=== PATIENT | female | born 1935 | race Caucasian/White ===

== ENCOUNTER → 2016-05-20 | Outpatient (CLI) | payer MEDICARE, BC ==
[2016-05-20 13:25] LABS: Basophils # (A) 0.1 k/uL (0-0.2); Basophils % (A) 1 %; CH 30.3; CHCM 33.3; Eosinophils # (A) 0.2 k/uL (0-0.7); Eosinophils % (A) 2 %; HCT 37.8 % (34.0-46.0); HDW 2.42; HGB 12.2 gm/dL (11.4-16.0); Luc # (Auto) 0.25; Luc % (Auto) 3; Lymphocytes # (A) 2.4 k/uL (1.0-4.8); Lymphocytes % (A) 31 %; MCH 29.4 pg (25.0-35.0); MCHC 32.2 g/dL (31.0-37.0); MCV 91.4 fL (80.0-100.0); Mean Platelet Volume 6.6; Monocytes # (A) 0.5 k/uL (0-1.0); Monocytes % (A) 6 %; Neutrophils # (A) 4.5 k/uL (1.3-7.7); Neutrophils % (A) 58 %; RBC 4.13 m/uL (3.80-5.40); RDW 13.5 % (11.5-15.5); WBC 7.9 k/uL (3.8-10.6)
[2016-05-20 13:28] LABS: Appearance,Urine Clear (Clear); Bilirubin,Urine Negative (Negative); Glucose,Urine (UA) Negative (Negative); Ketones,Urine Negative (Negative); Leukocyte Esterase,Urine Negative (Negative); Nitrite,Urine Negative (Negative); Protein,Urine Negative (Negative); UA Billing (MACRO vs. MICRO) CHEM; Urobilinogen,Urine <2.0 mg/dL (<2.0)
[2016-05-20 13:31] LABS: Partial Thromboplastin Time 23.4 sec (22.0-30.0); Prothrombin Time 10.3 sec (9.0-12.0)
[2016-05-20 13:33] LABS: ALT 40 U/L (9-52); AST 24 U/L (14-36); Alkaline Phosphatase 76 U/L (38-126); Anion Gap 13 mmol/L; Blood Urea Nitrogen 21 mg/dL (7-17); Carbon Dioxide 23 mmol/L (22-30); Chloride 96 mmol/L (98-107); Glucose 81 mg/dL (74-99); Non-African American GFR(MDRD) 53 (>60 ml/min/1.73 sqM); Sodium 132 mmol/L (137-145); Total Bilirubin 0.7 mg/dL (0.2-1.3); Total Protein 7.7 g/dL (6.3-8.2)
== END | disposition home or self-care (01) ==
LOC: LABPAT 12:45
PROVIDERS: ATTEND Orthopaedic Surgery Sports Medicine
DX: Z01.812 Encounter for preprocedural laboratory examination (principal)
CPT/HCPCS: 80053; 81003; 85025; 85610; 85730; 87070

== ENCOUNTER 2016-05-23 11:52 | Inpatient (IN) | payer MEDICARE, BC ==
[2016-05-21 09:21] VITALS: BMI 31.3
[~2016-05-23 11:52] MED LIST: ACETAMINOPHEN TAB 500 MG TAB PO ONE; DEXAMETHASONE SOD PHOSPHATE 10 MG/ML 1 ML VIAL IV ONE; LIDOCAINE 1% 20 ML VIAL (10MG/ML) FOR IV START INTRADERMA PRN; MELOXICAM 7.5 MG TAB PO ONE; MIDAZOLAM 2 MG/2 ML VIAL IV PRN; ONDANSETRON 4 MG/2 ML VIAL IVP ONE; SCOPOLAMINE 1.5MG/72HR PATCH TRANSDERM ONE; TRANEXAMIC ACID 1,000 MG in SODIUM CHLORIDE 0.9% 100 ML IVPB ONE; ceFAZolin 2 GM in SODIUM CHLORIDE 0.9% 100 ML IVPB ONE
[2016-05-23 13:07] LABS: Glucose,Whole Blood 119 mg/dL (75-99)
[2016-05-23] MEDS: LACTATED RINGERS 1,000 ML IV SCH ×2 (13:11→17:06)
[2016-05-23] MEDS ORDERED: ROCURONIUM BROMIDE 10 MG/ML 10 ML VIAL IV ONE (13:30)
[2016-05-23] MEDS ORDERED: ePHEDrine 50 MG/ML 1 ML AMP ONE (13:30)
[2016-05-23] MEDS ORDERED: NEOSTIGMINE 1 MG/ML 10 ML VIAL ONE (13:30)
[2016-05-23] MEDS ORDERED: HYDROmorphone (PF) 1 MG/ML ONE (13:30)
[2016-05-23] MEDS ORDERED: SUCCINYLCHOLINE CHLORIDE 100 MG/5 ML SYR IV ONE (13:30)
[2016-05-23] MEDS ORDERED: MIDAZOLAM 2 MG/2 ML VIAL ONE (13:30)
[2016-05-23] MEDS ORDERED: TRANEXAMIC ACID 1,000 MG/10 ML VIAL ONE (13:30)
[2016-05-23] MEDS ORDERED: SODIUM CHLORIDE 0.9% 100 ML BAG ONE (13:30)
[2016-05-23] MEDS ORDERED: fentaNYL (PF) 50 MCG/ML 2 ML AMP ONE (13:30)
[2016-05-23] MEDS ORDERED: hydrALAZINE HCL 20 MG/ML 1 ML VIAL ONE (13:30)
[2016-05-23] MEDS ORDERED: GLYCOPYRROLATE 0.2 MG/ML 2 ML VIAL ONE (13:30)
[2016-05-23] MEDS ORDERED: PROPOFOL 10 MG/ML 20 ML VIAL IV ONE (13:30)
[2016-05-23] MEDS ORDERED: ceFAZolin 3,000 MG in SODIUM CHLORIDE 0.9% IRRIGATIO 3,000 ML IRRIGATION ONE (14:00)
[2016-05-23] MEDS ORDERED: hydrOXYzine PAMOATE 25 MG CAP PO PRN (15:26)
[2016-05-23] MEDS ORDERED: ACETAMINOPHEN TAB 325 MG TAB PO PRN (15:26)
[2016-05-23] MEDS ORDERED: NALOXONE 0.4 MG/ML 1 ML VIAL IV PRN (15:26)
[2016-05-23] MEDS ORDERED: NA PHOS,M-B/NA PHOS,DI-BA 133 ML ENEMA RECTAL PRN (15:26)
[2016-05-23] MEDS ORDERED: TEMAZEPAM 15 MG CAP PO PRN (15:26)
[2016-05-23] MEDS ORDERED: BISACODYL 10 MG SUPP RECTAL PRN (15:26)
[2016-05-23] MEDS ORDERED: DIAZEPAM 5 MG TAB PO PRN (15:26)
[2016-05-23] MEDS ORDERED: MAGNESIUM HYDROXIDE 2,400 MG/10 ML CUP PO PRN (15:26)
[2016-05-23] MEDS ORDERED: HYDROmorphone 1 MG/ML 1 ML SYRINGE IVP PRN ×3 (15:26)
[2016-05-23] MEDS: HYDROmorphone 1 MG/ML 1 ML SYRINGE IVP PRN ×2 (15:45→16:14)
--- NOTE | 2016-05-23 16:06 | XR ---
Limited right knee HISTORY: Status post right knee arthroplasty. 2 views of the right knee No comparisons Patient is status post right knee arthroplasty. There is anatomic alignment. Lucency in the soft tiss ues compatible with postop state. There are vascular arterial calcifications. IMPRESSION: Orthopedic follow-up
[2016-05-23] MEDS: ONDANSETRON 4 MG/2 ML VIAL IVP PRN (17:48)
[2016-05-23] MEDS ORDERED: WARFARIN 2.5 MG TAB PO ONE (18:00)
[2016-05-23 19:56] LABS: Glucose,Whole Blood 154 mg/dL (75-99)
[2016-05-23] MEDS: HYDROcodone/APAP 7.5-325MG 1 EACH TAB PO PRN (20:15)
[2016-05-23] MEDS: SENNOSIDES-DOCUSATE SODIUM 1 EACH TAB PO SCH (20:16)
[2016-05-23] MEDS: CALCIUM CARB-VIT D 500MG-200UN 1 EACH TAB PO SCH (20:16)
[2016-05-23] MEDS: INSULIN LISPRO (humaLOG) 300 UNIT/3 ML VIAL SQ SCH (20:16)
--- NOTE | 2016-05-23 21:22 | PN ---
DATE OF SERVICE: 05/23/2016 Glory is status post right total knee arthroplasty done earlier today. She is back up on the floor. She is resting comfortably. Her pain is controlled. She has no complaints. EXAM: She is afebrile. Vital signs are stable. Dressings dry. She has intact flexion-extension, inversion and eversion of the ankle. She has intact flexion-extension of all of her toes. She has brisk capillary refill and 2+ posterior tibial pulse. Sensation is also intact to the lateral, medial, plantar and first dorsal web space. IMPRESSION: Status post right total knee arthroplasty. RECOMMENDATIONS: Glory is doing very well early in the postoperative period. She will continue on usual postoperative regimen. She will start with physical therapy tomorrow. She will continue with postoperative IV antibiotics as well as DVT prophylaxis. All of her questions were answered to her satisfaction.
--- NOTE | 2016-05-23 22:35 | OP ---
DATE OF SERVICE: 05/23/2016. SURGEON: MARY VALERO MD IT [employer] DEVELOPMENT CONSULTANT: SILVIA YOUNG. PREOPERATIVE DIAGNOSIS: Right knee osteoarthrosis. POSTOPERATIVE DIAGNOSIS: Right knee osteoarthrosis. OPERATION: Right total knee arthroplasty. ANESTHESIA: General endotracheal. ESTIMATED BLOOD LOSS: 150 mL TOURNIQUET TIME: 47 minutes at 250 mmHg. SPECIMENS REMOVED: COMPLICATIONS: None apparent. DRAINS: None. DISPOSITION: Postanesthesia care unit. OPERATIVE FINDINGS: INDICATIONS: Mrs. Bermudez is an 81-year-old female with long-standing history of right knee pain. History and physical examination are consistent with advanced right knee osteoarthrosis. She has been through significant nonoperative management up to this point. Further treatment options were discussed and she and I decided to go forward with right total knee arthroplasty. The risks and benefits of the procedure were discussed with her in detail. These risks include, but are not limited to risk of infection, nerve damage, bleeding, pain, and a risk of deep vein thrombosis, which could lead to fatal pulmonary embolism. There is also a risk of loosening of the implant, which could require revision operation. The patient understands these risks. All of her questions were answered to her satisfaction. Appropriate informed consent was obtained. DESCRIPTION OF THE PROCEDURE: Patient was identified in the preoperative holding area. Surgical site was marked by both the patient and myself. She was given 2 grams of Ancef IV for prophylactic purposes. She was then transferred to the operative suite. She was placed supine on the operating room table. A general anesthetic was administered and dosed per the anesthesia department without apparent complication. Examination under anesthesia was then performed. The patient had full extension. She had 100 degrees of flexion, and the medial collateral ligament, lateral collateral ligament and posterior cruciate ligaments were stable. Tourniquet was placed high on the right upper thigh, well-padded in preparation for surgery. The patient's right lower extremity was then prepped and draped usual sterile fashion. Standard surgical pause was then undertaken to ensure that were operating on the correct site and that appropriate preoperative antibiotics had been given. All staff in the room were in agreement and we proceeded. The outlines of the patella were then marked with a surgical pen. A planned 12 cm vertical incision centered over the patella was marked with a surgical pen. The leg was then exsanguinated with an Esmarch dressing. The knee was then flexed and tourniquet was inflated to 250 mmHg. The total tourniquet time for the procedure was 47 minutes. Incision was then made with a 10 blade scalpel. Dissection was carried down sharply to the overlying fascia. Great care was taken to minimize skin flaps. The knee was then exposed using a standard medial parapatellar approach. A small cuff of quadriceps tendon was left for suturing. She was in mild valgus. Very minimal and only very minimal medial release was made. This was made just to accept the retractors. The medial meniscus was then excised and the lateral meniscus was also released anteriorly. The leg was then externally rotated. The patella was then everted and the knee was flexed. Retractors were then placed to protect the collateral ligaments. I then proceeded to remove the infrapatellar fat pad. This was excised sharply tangentially with the fibers of the patellar tendon. I then proceeded to remove the peripheral osteophytes. This was done with rongeur. I then proceeded with the distal femoral resection. She did have near full extension. A planned 9 mm resection was done. The femoral canal was then entered in the midline of the femur approximately 10 mm anterior to the origin of the posterior cruciate ligament. The chelsea was then advanced down the center of the femur and the chelsea placed intramedullary. Based on preoperative radiographs, the angle between the anatomic and mechanical axis of the femur was approximately 4 to 5 degrees the valgus angle of distal femoral cutting guide was then set at 4 degrees for the right knee. The distal femoral cutting guide was then advanced over the intramedullary chelsea. This was seated firmly against the femur. I then, as mentioned, planned to take 9 mm off the distal femur. The cutting block was then secured onto the femur with pins. Jig was then removed and the distal femoral cut was made through the slot of the block. The pins were then removed and the distal femoral cutting block was removed. The accuracy of the distal femoral cuts was checked with 2 flat bars. I then proceeded with femoral sizing. The posterior referencing sizing guide was held firmly against the resected distal surface of the femur. Posterior condyles were resting on the posterior plane of the guide. The sizing stylus was then placed onto the anterior femur. The size was measured size 6. I then assessed for femoral rotation. Plan was for 3 degrees of external rotation. 3 degrees of external rotation was placed onto the jig. These holes were then marked. I then confirmed the rotation by 3 separate methods. This was done using epicondylar axis as well as Whitesides line and posterior referencing. It was deemed that the external rotation was proper. I then went forward with placing the femoral cutting block. This was placed over the previously placed pinholes. Edy wing was then placed onto the anterior slots to ensure that we would not notch the anterior femur with the anterior femoral cut. I then proceeded with the anterior femoral cut. This was flush with the anterior cortex of the femur. Posterior cuts were then made followed by the anterior chamfer cut and then the posterior chamfer cut. The cutting block was then removed. Throughout the resection, the collateral ligaments were protected with retractors. I then placed a trial 6 femur. It fit very nice medial to lateral and fit flush with the distal end of the femur. The drill holes were then made. I then proceeded with the tibial cutter. Planned for cruciate-retaining knee. The guide was placed and set for varus valgus and for slope. Height was set for approximately 2 mm resection from the medial tibial plateau, which was the lower side. I was happy to the alignment and the amount of resection. The cutting block was then pinned to the proximal tibia. The alignment chelsea was removed and the proximal tibia was resected with the reciprocating saw. Again this was done with retractors, protecting the collateral ligaments as well as posterior cruciate ligament. I then proceeded to evaluate the flexion and extension gaps. A 10 mm block was then placed. The flexion and extension gaps were equal. I then proceeded with resection of the posterior osteophytes. She had very minimal posterior osteophytes. This was done using curved osteotome. This resected the posterior osteophytes and posterior capsule stripping was also done off the posterior aspect of the femur at this time. The osteophytes were removed. I then proceeded with resection of the patella. The thickness of the patella was measured using the caliper. Thickness was 22 mm, the thickness of the anticipated patellar dome was taken into account. Resection was then performed and confirmed to be equal in 4 quadrants using the caliper. Approximately 14 mm of bone remained after the resection. A 29 x 8 mm standard patellar trial was then placed. The holes were then drilled and trial was then placed. I then proceeded with sizing the tibial plate. A size C tibial plate fit very nicely. I then placed a trial femur, the tibial tray and the patellar button. A 10 mm trial tibial insert was also placed. The components fit very nicely. She had full extension and flexion. Extension and flexion gaps were equal and stable to both varus and valgus stress. The patella tracked appropriately. The tibial tray rotation was marked with a Bovie. This was externally rotated properly. I then proceeded with tibial preparation. I first drilled femoral holes and removed femoral component. The tibial tray was then set for proper external rotation as well as mediolateral placement onto the tibia. It was then pinned into place. I then proceeded with punching the keel. I then decided to proceed cementing of all of our components. The knee was thoroughly irrigated with sterile saline solution via pulse lavage. The lateral geniculate artery was identified and cauterized. All blood was removed from the bone of the tibia, femur and patella with pulse lavage. I then proceed with cementing. 2 packs of antibiotic bone cement were prepared on the back table by the computer technician. I then proceeded with cementing of the tibia first. The cement was impacted in the keel as well as deeply seated into the bone. A second coat of cement was then placed. The tibia was then impacted into place. Excess cement was removed with Wynne's and jokers. I then proceeded with cementing the femoral component. The femoral component was also cemented using standard technique. Excess cement was removed. A 10 mm trial insert was then placed into the knee. It was brought into full extension with a constant axial load placed until the cement had hardened. The patellar component was then re- cemented. This was held firmly with a compressive device until the cement had dried. When the cement had dried, the knee was taken out of extension. All excess cement was removed from around the prosthesis. I then trialed the knee with a 10 mm insert. Flexion-extension gaps were appropriate. The knee was stable. It came into full extension. I decided to go forward with a 10 mm cross-linked cruciate-retaining tibial insert. Polyethylene was then placed onto the tibial tray and locked. The knee was reduced. The knee was again further irrigated with sterile saline solution with antibiotic added. The tourniquet was then deflated. Total tourniquet time for the procedure was 47 minutes at 250 mmHg. Final components were Jesus Alberto persona size 6 cruciate-retaining femoral component, a size C tibial tray and a 10 mm medial congruent cruciate retaining polyethylene insert and a 29 x 8 mm patella. I then proceeded with closure. Again, the knee was thoroughly irrigated. The quadriceps tendon and the medial retinaculum were reapproximated with #2 Ethibond suture. The extensor mechanism was then closed with running #2 Quill suture. Subcutaneous tissues were then closed with 2-0 Vicryl interrupted suture. Skin was closed with a running 3-0 Quill suture. Dermabond was applied to the incision. Sterile compressive dressings were then applied. All sponge and needle counts were deemed correct prior to closure. The patient tolerated the procedure without apparent complication. She was transferred to recovery room in stable condition.
[2016-05-23] MEDS: ceFAZolin 2 GM in SODIUM CHLORIDE 0.9% 100 ML IVPB SCH (23:35)
[2016-05-24] MEDS: LACTATED RINGERS 1,000 ML IV SCH ×3 (02:22→13:08)
[2016-05-24] MEDS: HYDROcodone/APAP 7.5-325MG 1 EACH TAB PO PRN ×3 (04:13→19:09)
[2016-05-24 07:22] LABS: Glucose,Whole Blood 120 mg/dL (75-99)
[2016-05-24] MEDS: INSULIN LISPRO (humaLOG) 300 UNIT/3 ML VIAL SQ SCH ×4 (07:35→20:10)
[2016-05-24] MEDS: METOPROLOL TARTRATE 25 MG TAB PO SCH ×2 (07:36→20:45)
[2016-05-24] MEDS: CHLORTHALIDONE 25 MG TAB PO SCH (07:37)
[2016-05-24] MEDS: MAGNESIUM OXIDE 400 MG TAB PO SCH (07:37)
[2016-05-24] MEDS: LOSARTAN 50 MG TAB PO SCH (07:37)
[2016-05-24] MEDS: CLOPIDOGREL 75 MG TAB PO SCH (07:37)
[2016-05-24] MEDS: amLODIPine 5 MG TAB PO SCH (07:38)
[2016-05-24] MEDS: LEVOTHYROXINE 88 MCG TAB PO SCH (07:38)
[2016-05-24] MEDS: PANTOPRAZOLE 40 MG TABLET PO SCH (07:38)
[2016-05-24] MEDS: ceFAZolin 2 GM in SODIUM CHLORIDE 0.9% 100 ML IVPB SCH (07:39)
[2016-05-24 08:10] LABS: Basophils % (A) 0 %; CH 30.5; CHCM 34.1; Eosinophils # (A) 0.1 k/uL (0-0.7); Eosinophils % (A) 0 %; HCT 33.2 % (34.0-46.0); HDW 2.58; HGB 11.1 gm/dL (11.4-16.0); Luc # (Auto) 0.16; Luc % (Auto) 1; Lymphocytes # (A) 1.8 k/uL (1.0-4.8); Lymphocytes % (A) 10 %; MCHC 33.4 g/dL (31.0-37.0); MCV 89.9 fL (80.0-100.0); Mean Platelet Volume 7.4; Monocytes # (A) 0.9 k/uL (0-1.0); Monocytes % (A) 5 %; Neutrophils # (A) 15.3 k/uL (1.3-7.7); Neutrophils % (A) 84 %; RBC 3.69 m/uL (3.80-5.40); RDW 13.3 % (11.5-15.5); WBC 18.3 k/uL (3.8-10.6); WBC (Perox) 17.88
[2016-05-24] MEDS: ONDANSETRON 4 MG/2 ML VIAL IVP PRN (09:07)
[2016-05-24 11:35] LABS: Glucose,Whole Blood 169 mg/dL (75-99)
[2016-05-24] MEDS: MULTIVITAMINS, THERA 1 EACH TAB PO SCH (13:10)
[2016-05-24 14:15] LABS: Hemoglobin A1C 7.7 % (4.2-6.1)
[2016-05-24 17:02] LABS: Glucose,Whole Blood 123 mg/dL (75-99)
--- NOTE | 2016-05-24 17:18 | CONS ---
DATE OF CONSULTATION: REASON FOR CONSULTATION: Recommendations regarding antihypertensive medications and asthma medications. Patient is a very pleasant 81-year-old female who underwent right knee arthroplasty. Patient is clinically doing well. Patient does have leukocytosis without any signs or symptoms of infection. Patient is on Coumadin for DVT prophylaxis. INR is 2. Patient denied any fever or chills. Patient denied any nausea, vomiting. Patient denied any cough, runny nose. Patient denied any dysuria. Patient does have leukocytosis at 18,300; it appears to be reactive leukocytosis. Her hemoglobin A1c is 7.7. Patient did not pass gas yet, did not move her bowel yet. Patient is on multiple other narcotic medications for pain. I discontinued diazepam. I discontinued hydromorphone. Anticholinergic medications were discontinued as well. Patient is complaining of pain in the right knee area which appears to have been controlled with Marina and meloxicam. Patient was also on GI prophylaxis at this point of time. REVIEW OF SYSTEMS: CONSTITUTIONAL: No fever, no malaise, no fatigue. HEENT: No recent visual problems or hearing problems. Denied any sore throat. CARDIOVASCULAR: No chest pain, orthopnea, PND, no palpitations, no syncope. PULMONARY: No shortness of breath, no cough, no hemoptysis. GASTROINTESTINAL: No diarrhea, no nausea, no vomiting, no abdominal pain. Normoactive bowel sounds. NEUROLOGICAL: No headaches, no weakness, no numbness. HEMATOLOGICAL: Denies any bleeding or petechiae. GENITOURINARY: Denies any burning micturition, frequency, or urgency. MUSCULOSKELETAL/RHEUMATOLOGICAL: Pain in the right knee, as mentioned above, post surgery. ENDOCRINE: Denies any polyuria or polydipsia. The rest of the 14 point review of systems is negative. Home medications include: 1. Levothyroxine. 2. Chlorthalidone. 3. Atorvastatin. 4. Omeprazole. 5. Metoprolol. 6. Losartan. 7. Amlodipine. 8. Nitroglycerin. 9. Multivitamin. 10. Lantus 17 units subcutaneous daily. 11. Plavix. 12. Cholecalciferol. 13. Aspirin. 14. Calcium carbonate. Past medical history is significant for: 1. Asthma. 2. Coronary artery disease. 3. Diabetes mellitus, type 2. 4. Gastroesophageal reflux disease. 5. Hyperlipidemia. 6. Hypertension. 7. Myocardial infarction. 8. Hypothyroidism. 9. Varicose veins in the past. 10. Patient had a cardiac catheterization with stent placement in the past. 11. Hysterectomy. 12. Pacemaker placement. 13. Back surgery. 14. Appendectomy. 15. Anxiety and depression. Past family history is significant for lung cancer. PHYSICAL EXAMINATION: VITAL SIGNS: Temperature 97.0, pulse 52, respiratory rate 16, blood pressure 170/115. Saturating at 97% on room air. GENERAL: The patient is alert and oriented x3, not in any acute distress. Well developed, well nourished. HEENT: Pupils are round and equally reacting to light. EOMI. No scleral icterus. No conjunctival pallor. Normocephalic, atraumatic. No pharyngeal erythema. No thyromegaly. CARDIOVASCULAR: S1 and S2 present. No murmurs, rubs, or gallops. PULMONARY: Chest is clear to auscultation, no wheezing or crackles. ABDOMEN: Soft, nontender, nondistended, normoactive bowel sounds. No palpable organomegaly. MUSCULOSKELETAL: Deferred to Orthopedic Surgery. EXTREMITIES: No cyanosis, clubbing, or pedal edema. NEUROLOGICAL: Gross neurological examination did not reveal any focal deficits. SKIN: No rashes. LABORATORY DATA: Leukocytosis, as mentioned above. ASSESSMENT AND PLAN: 1. Leukocytosis without any signs or symptoms of infection, which appears to be reactive. No further intervention is recommended at this point of time. 2. Asthma, not in acute exacerbation. 3. Coronary artery disease. 4. Hypertension. Recommend to continue her home medications, including metoprolol. 5. Patient is mildly bradycardic, but patient has a pacemaker in place. 6. Hyperlipidemia. 7. Hypothyroidism. For above-mentioned chronic medical problems, patient can be continued on her home medications. Continue to measure blood sugars t.i.d. and before meals. Will continue to follow the patient. Recommend avoiding benzodiazepines, opiates, barbiturates and anticholinergic medications. Thank you for letting me participate in this patient's care. Patient's primary care physician is Dr. Ben Tapia.
--- NOTE | 2016-05-24 17:44 | P.PN ---
Subjective Principal diagnosis: OA right knee Patient seen at bedside today. She is post op day #1 from right total knee arthroplasty per Dr. St. She has no new complaints. She has post op pain as expected at the surgical site. She denies numbness, tingling or calf pain. ROS is negative for fever, chills, chest pain, SOB or other. Objective - Vital Signs Vital signs: Vital Signs Temp 97.3 F L 05/24/16 15:34 Pulse 59 L 05/24/16 15:34 Resp 16 05/24/16 15:34 BP 149/67 05/24/16 15:34 Pulse Ox 96 05/24/16 15:34 Intake & Output 05/23/16 05/24/16 05/24/16 18:59 06:59 18:59 Intake Total 851 1390 1000 Output Total 350 700 450 Balance 501 690 550 Weight 70.307 kg Intake: IV 851 800 200 Lactated Ringers 1,000 ml 800 200 @ 100 mls/hr IV .Q10H ROSALVA Rx#:[id number] Oral 590 800 Output: Urine 200 700 450 Uretheral (Ann) 700 250 Estimated Blood Loss 150 Other: Voiding Method Indwelling Catheter Indwelling Catheter - Exam Inspection of right lower extremity reveals a benign surgical wound. There is no active bleeding, drainage, or dehiscence. Neuro status intact with motor and sensation throughout the lower extremity. Calf is soft and nontender. 2+ pulses and less than 2 sec cap refill present. - Psychiatric Psychiatric: Present: A&O x's 3, appropriate affect, intact judgment & insight - Labs CBC & Chem 7: 05/24/16 07:29 Labs: Abnormal Lab Results - Last 24 Hours (Table) 05/23/16 05/24/16 05/24/16 Range/Units 19:54 07:13 07:29 WBC (3.8-10.6) k/uL RBC (3.80-5.40) m/uL Hgb (11.4-16.0) gm/dL Hct (34.0-46.0) % Neutrophils # (1.3-7.7) k/uL PT (9.0-12.0) sec POC Glucose (mg/dL) 154 H 120 H (75-99) mg/dL Hemoglobin A1c 7.7 H (4.2-6.1) % 05/24/16 05/24/16 05/24/16 Range/Units 07:29 07:29 11:33 WBC 18.3 H (3.8-10.6) k/uL RBC 3.69 L (3.80-5.40) m/uL Hgb 11.1 L (11.4-16.0) gm/dL Hct 33.2 L (34.0-46.0) % Neutrophils # 15.3 H (1.3-7.7) k/uL PT 19.0 H (9.0-12.0) sec POC Glucose (mg/dL) 169 H (75-99) mg/dL Hemoglobin A1c (4.2-6.1) % 05/24/16 Range/Units 16:45 WBC (3.8-10.6) k/uL RBC (3.80-5.40) m/uL Hgb (11.4-16.0) gm/dL Hct (34.0-46.0) % Neutrophils # (1.3-7.7) k/uL PT (9.0-12.0) sec POC Glucose (mg/dL) 123 H (75-99) mg/dL Hemoglobin A1c (4.2-6.1) % Assessment and Plan (1) Osteoarthritis of right knee Narrative/Plan: She will continue with routine postop orthopedic protocol including wound care, PT, pain management, DVT prophylaxis, and medical management. Expect transfer to [facility] in [place], 05/27/16. Status: Acute Time with Patient: Less than 30
[2016-05-24] MEDS: METOCLOPRAMIDE 5 MG TAB PO SCH (17:55)
[2016-05-24] MEDS ORDERED: WARFARIN 2.5 MG TAB PO ONE (18:00)
[2016-05-24 19:55] LABS: Glucose,Whole Blood 183 mg/dL (75-99)
[2016-05-24] MEDS ORDERED: TEMAZEPAM 15 MG CAP PO PRN (20:07)
[2016-05-24] MEDS: INSULIN GLARGINE 100 UNIT/ML 10 ML VIAL SQ SCH (20:08)
[2016-05-24] MEDS: ATORVASTATIN 80 MG TAB PO SCH (20:08)
[2016-05-24] MEDS: SENNOSIDES-DOCUSATE SODIUM 1 EACH TAB PO SCH (20:10)
[2016-05-24] MEDS: CALCIUM CARB-VIT D 500MG-200UN 1 EACH TAB PO SCH (20:10)
[2016-05-24] MEDS: traMADol 50 MG TAB PO PRN (20:48)
[2016-05-25] MEDS: HYDROcodone/APAP 7.5-325MG 1 EACH TAB PO PRN ×3 (01:07→12:56)
[2016-05-25] MEDS: LACTATED RINGERS 1,000 ML IV SCH ×4 (01:39→19:12)
[2016-05-25 07:15] LABS: INR 3.7 (<1.1); Prothrombin Time 36.2 sec (9.0-12.0)
[2016-05-25 07:28] LABS: Glucose,Whole Blood 133 mg/dL (75-99)
[2016-05-25] MEDS: INSULIN LISPRO (humaLOG) 300 UNIT/3 ML VIAL SQ SCH ×4 (07:46→20:25)
[2016-05-25] MEDS: LEVOTHYROXINE 88 MCG TAB PO SCH (07:49)
[2016-05-25] MEDS: amLODIPine 5 MG TAB PO SCH (07:49)
[2016-05-25] MEDS: CLOPIDOGREL 75 MG TAB PO SCH ×2 (07:49→12:53)
[2016-05-25] MEDS: CHLORTHALIDONE 25 MG TAB PO SCH (07:49)
[2016-05-25] MEDS: MULTIVITAMINS, THERA 1 EACH TAB PO SCH (07:50)
[2016-05-25] MEDS: MAGNESIUM OXIDE 400 MG TAB PO SCH (07:50)
[2016-05-25] MEDS: PANTOPRAZOLE 40 MG TABLET PO SCH (07:50)
[2016-05-25] MEDS: METOPROLOL TARTRATE 25 MG TAB PO SCH ×2 (07:50→20:24)
[2016-05-25] MEDS: LOSARTAN 50 MG TAB PO SCH (07:50)
[2016-05-25] MEDS: METOCLOPRAMIDE 5 MG TAB PO SCH ×3 (07:50→17:28)
--- NOTE | 2016-05-25 09:18 | P.PN ---
Subjective Principal diagnosis: OA right knee Patient seen at bedside today. She is post op day #2 from right total knee arthroplasty per Dr. St. She has no new complaints. She has post op pain as expected at the surgical site. She denies numbness, tingling or calf pain. ROS is negative for fever, chills, chest pain, SOB or other. Objective - Vital Signs Vital signs: Vital Signs Temp 97.8 F 05/25/16 01:19 Pulse 67 05/25/16 01:19 Resp 16 05/25/16 01:19 BP 151/66 05/25/16 01:19 Pulse Ox 98 05/25/16 01:19 Intake & Output 05/24/16 05/25/16 05/25/16 18:59 06:59 18:59 Intake Total 1000 350 Output Total 450 Balance 550 350 Weight 70.307 kg Intake: IV 200 Lactated Ringers 1,000 ml 200 @ 100 mls/hr IV .Q10H ROSALVA Rx#:[id number] Oral 800 350 Output: Urine 450 Uretheral (Ann) 250 Other: Voiding Method Indwelling Catheter Toilet # Voids 2 - Exam Inspection of right lower extremity reveals a benign surgical wound. There is no active bleeding, drainage, or dehiscence. Neuro status intact with motor and sensation throughout the lower extremity. Calf is soft and nontender. 2+ pulses and less than 2 sec cap refill present. - Constitutional General appearance: Present: no acute distress - Psychiatric Psychiatric: Present: A&O x's 3, appropriate affect, intact judgment & insight - Labs CBC & Chem 7: 05/24/16 07:29 Labs: Abnormal Lab Results - Last 24 Hours (Table) 05/24/16 05/24/16 05/24/16 Range/Units 07:29 11:33 16:45 PT (9.0-12.0) sec POC Glucose (mg/dL) 169 H 123 H (75-99) mg/dL Hemoglobin A1c 7.7 H (4.2-6.1) % 05/24/16 05/25/16 05/25/16 Range/Units 19:54 06:52 07:27 PT 36.2 H (9.0-12.0) sec POC Glucose (mg/dL) 183 H 133 H (75-99) mg/dL Hemoglobin A1c (4.2-6.1) % Assessment and Plan (1) Osteoarthritis of right knee Narrative/Plan: She will continue with routine postop orthopedic protocol including wound care, PT, pain management, DVT prophylaxis, and medical management. Expect transfer to [facility] in , 05/27/16. Status: Acute Time with Patient: Less than 30
[2016-05-25 11:40] LABS: Glucose,Whole Blood 142 mg/dL (75-99)
--- NOTE | 2016-05-25 14:53 | PN ---
An 81-year-old admitted with right knee arthroplasty. The patient is clinically doing well. REVIEW OF SYSTEMS: CARDIOVASCULAR: No chest pain, no orthopnea, no PND, no palpitations. PULMONARY: Denied any shortness of breath. No cough or hemoptysis. GASTROINTESTINAL: No diarrhea, nausea or vomiting. No abdominal pain. Normoactive bowel sounds. NEUROLOGIC: No headaches, no weakness, no numbness. Medications were reviewed. PHYSICAL EXAMINATION: Temperature 97.7, pulse 56, respiratory rate of 16., blood pressure is 128/60, saturating at 96% on room air. GENERAL: The patient is alert and oriented x3, not in any acute distress. Well developed, well nourished. HEENT: Pupils are round and equally reacting to light. EOMI. No scleral icterus. No conjunctival pallor. Normocephalic, atraumatic. No pharyngeal erythema. No thyromegaly. CARDIOVASCULAR: S1 and S2 present. No murmurs, rubs, or gallops. PULMONARY: Chest is clear to auscultation, no wheezing or crackles. ABDOMEN: Soft, nontender, nondistended, normoactive bowel sounds. No palpable organomegaly. MUSCULOSKELETAL: Defer to Orthopedic Surgery. EXTREMITIES: No cyanosis, clubbing, or pedal edema. NEUROLOGICAL: Gross neurological examination did not reveal any focal deficits. SKIN: No rashes. LABORATORY DATA: Patient does have leukocytosis secondary reactive response from surgery. INR is 3.7 and Coumadin will be held. ASSESSMENT AND PLAN: 1. Status post right knee arthroplasty, postoperative day 2. Pain management as per primary service although avoid opiates for pain. Avoid benzodiazepines and barbiturates and anticholinergic medications as well. Hold off on Coumadin because of supratherapeutic INR. 2. Asthma without any acute exacerbation. 3. Leukocytosis, reactive. 4. Coronary artery disease. 5. Hypertension, fairly controlled blood pressures at this point of time. 6. Hyperlipidemia. 7. Hypothyroidism. Plan is to continue with present medications. Will continue to follow the patient on an as-needed basis.
[2016-05-25 17:43] LABS: Glucose,Whole Blood 90 mg/dL (75-99)
[2016-05-25 20:07] LABS: Glucose,Whole Blood 163 mg/dL (75-99)
[2016-05-25] MEDS: INSULIN GLARGINE 100 UNIT/ML 10 ML VIAL SQ SCH (20:24)
[2016-05-25] MEDS: ATORVASTATIN 80 MG TAB PO SCH (20:24)
[2016-05-25] MEDS: CALCIUM CARB-VIT D 500MG-200UN 1 EACH TAB PO SCH (20:24)
[2016-05-25] MEDS: SENNOSIDES-DOCUSATE SODIUM 1 EACH TAB PO SCH (20:24)
[2016-05-26] MEDS: HYDROcodone/APAP 7.5-325MG 1 EACH TAB PO PRN ×3 (03:22→18:42)
[2016-05-26] MEDS: LACTATED RINGERS 1,000 ML IV SCH ×3 (04:16→16:32)
[2016-05-26 07:31] LABS: Glucose,Whole Blood 112 mg/dL (75-99)
[2016-05-26] MEDS: INSULIN LISPRO (humaLOG) 300 UNIT/3 ML VIAL SQ SCH ×4 (07:34→20:17)
[2016-05-26] MEDS: CLOPIDOGREL 75 MG TAB PO SCH (07:35)
[2016-05-26] MEDS: MULTIVITAMINS, THERA 1 EACH TAB PO SCH (07:35)
[2016-05-26] MEDS: LOSARTAN 50 MG TAB PO SCH (07:35)
[2016-05-26] MEDS: LEVOTHYROXINE 88 MCG TAB PO SCH (07:36)
[2016-05-26] MEDS: CHLORTHALIDONE 25 MG TAB PO SCH (07:36)
[2016-05-26] MEDS: METOPROLOL TARTRATE 25 MG TAB PO SCH ×2 (07:36→20:17)
[2016-05-26] MEDS: METOCLOPRAMIDE 5 MG TAB PO SCH ×3 (07:36→16:38)
[2016-05-26] MEDS: amLODIPine 5 MG TAB PO SCH (07:36)
[2016-05-26] MEDS: MAGNESIUM OXIDE 400 MG TAB PO SCH (07:36)
[2016-05-26] MEDS: PANTOPRAZOLE 40 MG TABLET PO SCH (07:36)
[2016-05-26 08:53] LABS: Basophils # (A) 0.1 k/uL (0-0.2); Basophils % (A) 1 %; CH 30.1; CHCM 33.3; Eosinophils # (A) 0.2 k/uL (0-0.7); Eosinophils % (A) 2 %; HCT 29.7 % (34.0-46.0); HDW 2.59; HGB 9.7 gm/dL (11.4-16.0); Luc # (Auto) 0.24; Luc % (Auto) 2; Lymphocytes # (A) 1.9 k/uL (1.0-4.8); Lymphocytes % (A) 17 %; MCH 29.7 pg (25.0-35.0); MCHC 32.7 g/dL (31.0-37.0); MCV 90.8 fL (80.0-100.0); Mean Platelet Volume 7.5; Monocytes # (A) 0.6 k/uL (0-1.0); Monocytes % (A) 6 %; Neutrophils % (A) 72 %; RBC 3.27 m/uL (3.80-5.40); RDW 13.4 % (11.5-15.5); WBC 11.1 k/uL (3.8-10.6); WBC (Perox) 11.67
--- NOTE | 2016-05-26 09:08 | P.PN ---
Subjective Principal diagnosis: OA right knee Patient seen at bedside today. She is post op day #3 from right total knee arthroplasty per Dr. St. She has no new complaints. She has post op pain as expected at the surgical site. She denies numbness, tingling or calf pain. ROS is negative for fever, chills, chest pain, cough, SOB, slurred speech or other. Objective - Vital Signs Vital signs: Vital Signs Temp 98.4 F 05/26/16 07:00 Pulse 78 05/26/16 07:00 Resp 16 05/26/16 07:00 BP 132/82 05/26/16 07:00 Pulse Ox 95 05/26/16 07:00 Intake & Output 05/25/16 05/26/16 05/26/16 18:59 06:59 18:59 Intake Total 720 840 Balance 720 840 Intake: Oral 720 840 Other: # Voids 2 1 1 - Exam Inspection of right lower extremity reveals a benign surgical wound. There is no active bleeding, drainage, or dehiscence. Neuro status intact with motor and sensation throughout the lower extremity. Calf is soft and nontender. 2+ pulses and less than 2 sec cap refill present, abdomen soft and nontender - Constitutional General appearance: Present: no acute distress - Psychiatric Psychiatric: Present: A&O x's 3, appropriate affect, intact judgment & insight - Labs CBC & Chem 7: 05/26/16 08:39 Labs: Abnormal Lab Results - Last 24 Hours (Table) 05/25/16 05/25/16 05/26/16 Range/Units 11:39 20:06 07:28 WBC (3.8-10.6) k/uL RBC (3.80-5.40) m/uL Hgb (11.4-16.0) gm/dL Hct (34.0-46.0) % Neutrophils # (1.3-7.7) k/uL POC Glucose (mg/dL) 142 H 163 H 112 H (75-99) mg/dL 05/26/16 Range/Units 08:39 WBC 11.1 H (3.8-10.6) k/uL RBC 3.27 L (3.80-5.40) m/uL Hgb 9.7 L (11.4-16.0) gm/dL Hct 29.7 L (34.0-46.0) % Neutrophils # 8.0 H (1.3-7.7) k/uL POC Glucose (mg/dL) (75-99) mg/dL Assessment and Plan (1) Osteoarthritis of right knee Narrative/Plan: She will continue with routine postop orthopedic protocol including wound care, PT, pain management, DVT prophylaxis, and medical management. Expect transfer to [facility] in , 05/27/16. Status: Acute Time with Patient: Less than 30
[2016-05-26 09:16] LABS: Prothrombin Time 29.3 sec (9.0-12.0)
[2016-05-26 11:45] LABS: Glucose,Whole Blood 135 mg/dL (75-99)
[2016-05-26 16:43] LABS: Glucose,Whole Blood 108 mg/dL (75-99)
[2016-05-26] MEDS: ATORVASTATIN 80 MG TAB PO SCH (20:16)
[2016-05-26] MEDS: INSULIN GLARGINE 100 UNIT/ML 10 ML VIAL SQ SCH (20:16)
[2016-05-26] MEDS: CALCIUM CARB-VIT D 500MG-200UN 1 EACH TAB PO SCH (20:17)
[2016-05-26] MEDS: SENNOSIDES-DOCUSATE SODIUM 1 EACH TAB PO SCH (20:17)
[2016-05-26 20:22] LABS: Glucose,Whole Blood 206 mg/dL (75-99)
[2016-05-26] MEDS: traMADol 50 MG TAB PO PRN (22:06)
[2016-05-27] MEDS: HYDROcodone/APAP 7.5-325MG 1 EACH TAB PO PRN ×3 (01:28→12:16)
[2016-05-27 03:13] VITALS: RESP 18
[2016-05-27] MEDS: LACTATED RINGERS 1,000 ML IV SCH ×2 (04:04→05:34)
[2016-05-27 06:58] LABS: Glucose,Whole Blood 123 mg/dL (75-99)
[2016-05-27 07:31] VITALS: BP 107/69; PULSE 66; TEMP 97.7
[2016-05-27 07:35] LABS: Prothrombin Time 19.4 sec (9.0-12.0)
[2016-05-27] MEDS: METOPROLOL TARTRATE 25 MG TAB PO SCH (07:36)
[2016-05-27] MEDS: INSULIN LISPRO (humaLOG) 300 UNIT/3 ML VIAL SQ SCH (07:36)
[2016-05-27] MEDS: METOCLOPRAMIDE 5 MG TAB PO SCH (07:36)
[2016-05-27] MEDS: MULTIVITAMINS, THERA 1 EACH TAB PO SCH (07:37)
[2016-05-27] MEDS: LOSARTAN 50 MG TAB PO SCH (07:37)
[2016-05-27] MEDS: CLOPIDOGREL 75 MG TAB PO SCH (07:37)
[2016-05-27] MEDS: MAGNESIUM OXIDE 400 MG TAB PO SCH (07:37)
[2016-05-27] MEDS: amLODIPine 5 MG TAB PO SCH (07:37)
[2016-05-27] MEDS: LEVOTHYROXINE 88 MCG TAB PO SCH (07:37)
[2016-05-27] MEDS: CHLORTHALIDONE 25 MG TAB PO SCH (07:38)
[2016-05-27] MEDS: PANTOPRAZOLE 40 MG TABLET PO SCH (07:39)
--- NOTE | 2016-05-27 11:04 | P.DS ---
Providers Date of admission: 05/23/16 11:52 Expected date of discharge: 05/27/16 Attending physician: Mg St Consults: 05/23/16 15:26 Consult Physician Routine Consulting Provider: David Cabrera Consult Reason/Comments: post op medical management Do you want consulting provider notified?: Yes Primary care physician: Ben Meyer Tapia - Discharge Diagnosis(es) (1) Osteoarthritis of right knee Patient is pleasant 81-year-old female is admitted the OR on 05/24/2016 to undergo right total knee arthroplasty per Dr. St. She had failed conservative measures as an outpatient and desired to proceed with elective surgery after giving informed consent. She underwent the above procedure which she tolerated well without competition. Her postoperative hospital course has remained without complication. On day of discharge she is afebrile, labs within acceptable ranges, vital signs stable, wound is benign, denies new complaints, neurovascular status is intact, abdomen is soft and nontender, calf is soft and nontender, adequate perfusion throughout the lower extremities. Review of systems is negative for fever, chills, chest pain, shortness of breath , nausea, vomiting, dizziness, headaches, calf pain, abdominal pain, headaches, slurred speech, numbness, tingling or other. Current Visit: Yes Status: Acute Priority: Medium Procedures: Right total knee arthroplasty Patient Condition at Discharge: Good Plan - Discharge Summary New Discharge Prescriptions: Docusate [Colace] 100 mg PO BID #60 capsule HYDROcodone/APAP 7.5-325MG [Ephraim 7.5-325] 1 - 2 each PO Q6HR PRN #90 tab PRN Reason: Pain INSULIN LISPRO (HumaLOG) [humaLOG] 0 unit SQ ACHS #1 vial Warfarin [Coumadin] 2.5 mg PO DAILY #28 tab Discharge Medication List Calcium Carbonate/Vitamin D3 [Calcium 600-Vit D3 400 Tablet] 2 tab PO HS [History] Cholecalciferol [Vitamin D3] 2,000 unit PO DAILY 06/22/14 [History] Magnesium Gluconate [Magonate] 500 mg PO DAILY 06/22/14 [History] Multivitamins, Thera [Multivitamin] 1 tab PO DAILY 06/22/14 [History] Vitamin E 1,000 unit PO DAILY 06/22/14 [History] Clopidogrel [Plavix] 75 mg PO DAILY #90 tab 06/23/14 [Rx] Aspirin 81 mg PO DAILY 06/27/14 [History] Losartan Potassium [Cozaar] 100 mg PO DAILY@89906/27/14 [History] Cod Liver Oil 1 cap PO DAILY 10/11/14 [History] Omeprazole [PriLOSEC] 20 mg PO AC-BRKFST@89910/11/14 [History] Fish Oil/Dha/Epa [Fish Oil 1,200 mg Fish Oil] 1 cap PO DAILY 01/10/15 [History] Chlorthalidone 25 mg PO DAILY@0905/21/16 [History] Insulin Glargine [Lantus] 17 unit SQ DAILY@189905/21/16 [History] Levothyroxine Sodium [Synthroid] 88 mcg PO DAILY@79905/21/16 [History] Metoprolol Tartrate [Lopressor] 25 mg PO BID@0900,189905/21/16 [History] Nitroglycerin Sl Tabs [Nitrostat] 0.4 mg SUBLINGUAL Q5M PRN 05/21/16 [History] Atorvastatin [Lipitor] 80 mg PO DAILY@189905/23/16 [History] Docusate [Colace] 100 mg PO BID #60 capsule 05/27/16 [Rx] HYDROcodone/APAP 7.5-325MG [Ephraim 7.5-325] 1 - 2 each PO Q6HR PRN #90 tab [Rx] INSULIN LISPRO (HumaLOG) [humaLOG] 0 unit SQ ACHS #1 vial 05/27/16 [Rx] Metoclopramide [Reglan] 5 mg PO AC-TID tab 05/27/16 [Rx] Sennosides-Docusate Sodium [Senokot-S] 2 each PO HS tab 05/27/16 [Rx] Warfarin [Coumadin] 2.5 mg PO DAILY #28 tab 05/27/16 [Rx] Follow up Appointment(s)/Referral(s): Ben Tapia MD [Primary Care Provider] - [address] MD [STAFF PHYSICIAN] - 2 Weeks Ambulatory/Diagnostic Orders: Prothrombin Time INR [LAB.AMB] Location: Determined By Patient Patient Instructions/Handouts: Knee Replacement (DC) Activity/Diet/Wound Care/Special Instructions: Norvasc on hold Anticogaulation, Pain meds as per ortho Weight bear as tolerated F/U with Dr. St in office Take meds as directed Keep wound clean and dry Diet: Consist. Carb Accu checks ACHS Discharge Disposition: TRANSFER TO SNF/ECF
[2016-05-27] MEDS ORDERED: HYDROcodone/APAP 7.5-325MG 1 EACH TAB PO PRN (11:14)
[2016-05-27 11:18] LABS: Glucose,Whole Blood 170 mg/dL (75-99)
--- NOTE | 2016-05-27 12:08 | XR ---
EXAMINATION TYPE: XR chest 1V portable DATE OF EXAM: 05/27/2016 12:04 PM COMPARISON: 06/28/2014 HISTORY: ECF placement TECHNIQUE: Single frontal view of the chest is obtained. FINDINGS: There is no focal air space opacity, pleural effusion, or pneumothorax seen. The cardiac silhouette size is within normal limits. The osseous structures are intact. Cardiac device noted. IMPRESSION: No acute process.
--- NOTE | 2016-05-28 18:17 | P.PN ---
Subjective Date of service 05/27/2016 Progress note being dictated for Dr. Cruz. Interval history: This is an 81-year-old female admitted with right knee osteoarthritis status post total right knee arthroplasty. Continues to do well. INR at 2.0. As it diet intake. Passing flatus, no bowel movement. Denies chest pain, palpitations or increasing shortness of breath. Denies focal deficits, no dizziness or lightheadedness. Awaiting discharge to [facility] rehab. Pain controlled. Objective - Vital Signs Vital signs: Vital Signs Temp 97.7 F 05/27/16 07:30 Pulse 66 05/27/16 07:30 Resp 18 05/27/16 07:30 BP 107/69 05/27/16 07:30 Pulse Ox 93 L 05/27/16 07:30 Intake & Output 05/26/16 05/27/16 05/27/16 18:59 06:59 18:59 Intake Total 480 350 360 Balance 480 350 360 Intake: Oral 480 350 360 Other: Voiding Method Toilet # Voids 1 1 1 - Exam PHYSICAL EXAM: VITAL SIGNS: [As above] GENERAL: [Sitting up in bed, no acute distress] HEENT: [Pupils equal conjunctiva normal. No conjunctival pallor, normocephalic] NECK: [Supple, no JVD] RESPIRATORY EFFORT:[Normal] LUNGS: [Clear, bilateral bases diminished, no crackles, no wheezing or rhonchi] CARDIOVASCULAR[regular S1 and S2, no murmurs rubs or gallops] GI: [Abdomen soft, nontender, positive bowel sounds.] PSYCH: [Alert and oriented -3, mood and affect normal. Hard of hearing] NEURO: No focal deficits - Labs CBC & Chem 7: 05/26/16 08:39 Labs: Abnormal Lab Results - Last 24 Hours (Table) 05/26/16 05/26/16 05/27/16 Range/Units 16:40 20:09 06:48 PT 19.4 H (9.0-12.0) sec POC Glucose (mg/dL) 108 H 206 H (75-99) mg/dL 05/27/16 05/27/16 Range/Units 06:56 11:16 PT (9.0-12.0) sec POC Glucose (mg/dL) 123 H 170 H (75-99) mg/dL Assessment and Plan Plan: 1. [Status post right knee arthroplasty]. 2. [Subtherapeutic INR, now down to 2.0, recommend low dose Coumadin. 3. History of chronic intermittent asthma without acute exacerbation]. 4. [Leukocytosis, reactive]. 5. [CAD]. 6. [Hypertension]. 7. [Hyperlipidemia]. 8. Hypothyroidism Plan: Continue on current medication regime ,monitoring and symptomatic treatment. Anticoagulation and Pain management as per orthopedics. As mentioned above patient is being discharged by orthopedics to [facility] rehab. Further recommendations to follow. The impression and plan of care has been dictated as directed. : I performed a H&P examination of this patient and discussed the same with the dictator. I agree with the dictator's note. Any additional findings/opinions/ etc. will be noted.
== END 2016-05-27 14:19 | DRG 470 ==
LOC: 2ORMAIN 11:52 → 3SUR 16:31
PROVIDERS: ADMIT Orthopaedic Surgery Sports Medicine; ATTEND Orthopaedic Surgery Sports Medicine
PROC: 0SRC0J9 Replacement of Right Knee Joint with Synthetic Substitute, Cemented, Open Approach (ICD-10-PCS; principal; 2016-05-23 14:00)
DX: M17.11 Unilateral primary osteoarthritis, right knee (principal); E11.51 Type 2 diabetes mellitus with diabetic peripheral angiopathy without gangrene; R00.1 Bradycardia, unspecified; I10 Essential (primary) hypertension; F32.9 Major depressive disorder, single episode, unspecified; E03.9 Hypothyroidism, unspecified; E78.5 Hyperlipidemia, unspecified; F41.9 Anxiety disorder, unspecified; I25.10 Atherosclerotic heart disease of native coronary artery without angina pectoris; J45.909 Unspecified asthma, uncomplicated; K21.9 Gastro-esophageal reflux disease without esophagitis; R79.1 Abnormal coagulation profile; H91.90 Unspecified hearing loss, unspecified ear; I25.2 Old myocardial infarction; D16.21 Benign neoplasm of long bones of right lower limb; Z79.4 Long term (current) use of insulin; Z79.02 Long term (current) use of antithrombotics/antiplatelets; Z79.82 Long term (current) use of aspirin; Z79.899 Other long term (current) drug therapy; Z88.8 Allergy status to other drugs, medicaments and biological substances; Z95.0 Presence of cardiac pacemaker; Z95.5 Presence of coronary angioplasty implant and graft
CPT/HCPCS: 71010; 80053; 81003; 83036; 85025; 85610; 85730; 87070; 88300

== ENCOUNTER 2018-04-13 18:56 | Observation (INO) | payer MEDICARE, BC ==
[2018-04-13] MEDS ORDERED: SODIUM CHLORIDE 0.9% 1,000 ML IV STA (19:15)
[2018-04-13] MEDS ORDERED: IPRATROPIUM-ALBUTEROL 3 ML NEB INHALATION STA ×2 (19:15→22:56)
[2018-04-13] MEDS ORDERED: methylPREDNISolone SOD SUCCI 125 MG/2 ML VIAL IV STA (19:15)
--- NOTE | 2018-04-13 19:21 | ED ---
SOB HPI - General Chief Complaint: Shortness of Breath Stated Complaint: SOB, Arm/Back Pain Time Seen by Provider: 04/13/18 19:05 Source: patient, family, RN notes reviewed, old records reviewed Mode of arrival: wheelchair Limitations: no limitations - History of Present Illness Initial Comments: This is a 82-year-old female who is somewhat of a poor historian who is been on azithromycin for the past 4 days and is on her last pill today who presents with complaints of shortness of breath chest pain goes from her front to her back some abdominal discomfort. He has some exertional dyspnea she has no phlegm when she coughs she's not sure exactly when the pain started it was sometime today in moderate in severity. She cannot describe the pain any further. She states it does not seem to get any worse with deep breathing or movement. She is here for evaluation. She states she's never been diagnosed with COPD or asthma though she is a former smoker. She has of a history of heart disease diabetes thyroid disease. No current fevers chills sweats dysuria or other symptoms MD Complaint: shortness of breath, cough, chest pain - Related Data Home Medications Medication Instructions Recorded Confirmed Calcium Carbonate/Vitamin D3 2 tab PO DAILY 06/22/14 04/13/18 [Calcium 600-Vit D3 400 Tablet] Cholecalciferol [Vitamin D3] 1,000 unit PO DAILY 06/22/14 04/13/18 Multivitamins, Thera [Multivitamin 1 tab PO DAILY 06/22/14 04/13/18 (formulary)] Losartan Potassium [Cozaar] 100 mg PO DAILY 06/27/14 04/13/18 Omeprazole [PriLOSEC] 20 mg PO DAILY 10/11/14 04/13/18 Chlorthalidone 25 mg PO DAILY 05/21/16 04/13/18 Levothyroxine Sodium [Synthroid] 88 mcg PO DAILY 05/21/16 04/13/18 Metoprolol Tartrate [Lopressor] 25 mg PO BID 05/21/16 04/13/18 Atorvastatin [Lipitor] 80 mg PO HS 05/23/16 04/13/18 Albuterol Inhaler [Ventolin Hfa 2 puff INHALATION RT-Q6H PRN 04/13/18 04/13/18 Inhaler] Aspirin EC [Ecotrin Low Dose] 81 mg PO DAILY 04/13/18 04/13/18 Azithromycin [Zithromax Z-pack] See Taper PO DAILY 04/13/18 04/13/18 Cod Liver Oil 1 cap PO DAILY 04/13/18 04/13/18 Donepezil [Aricept] 10 mg PO HS 04/13/18 04/13/18 Insulin Glargine,Hum.rec.anlog 18 unit SQ HS 04/13/18 04/13/18 [Lantus Solostar] Memantine HCl [Namenda] 5 mg PO BID 04/13/18 04/13/18 Vitamin E (Dl,Tocopheryl Acet) 400 unit PO DAILY 04/13/18 04/13/18 [Vitamin E] Allergies Allergy/AdvReac Type Severity Reaction Status Date / Time celecoxib [From Celebrex] Allergy LIGHT Verified 04/13/18 19:48 SENSITIVITY/MIGRAINES NSAIDS (Non-Steroidal Allergy LIGHT Verified 04/13/18 19:48 Anti-Inflamma SENSITIVITY/MIGRAINES arthritis medications Allergy tongue Uncoded 04/13/18 19:05 swelling MOLD AdvReac Swelling Uncoded 04/13/18 19:05 Review of Systems ROS Statement: Those systems with pertinent positive or pertinent negative responses have been documented in the HPI. ROS Other: All systems not noted in ROS Statement are negative. Past Medical History Past Medical History: Asthma, Coronary Artery Disease (CAD), Diabetes Mellitus, GERD/Reflux, Hyperlipidemia, Hypertension, Myocardial Infarction ([place]), Thyroid Disorder Additional Past Medical History / Comment(s): varicose veins, incontinent of urine-uses depends, uses walker Last Myocardial Infarction Date:: 2014 History of Any Multi-Drug Resistant Organisms: None Reported Past Surgical History: Appendectomy, Back Surgery, Cholecystectomy, Heart Catheterization With Stent, Hysterectomy, Pacemaker Additional Past Surgical History / Comment(s): robotic abdominal surgery for mass, 2 cardiac stents, marcellus cataracts Past Anesthesia/Blood Transfusion Reactions: Previous Problems w/ Anesthesia Additional Past Anesthesia/Blood Transfusion Reaction / Comment(s): "blood pressure drops" Date of Last Stent Placement:: Type of Cardiac Device: Permanent Pacemaker Device Placement Date:: 2014 Past Psychological History: Anxiety, Depression Smoking Status: Former smoker Past Alcohol Use History: None Reported Past Drug Use History: None Reported - Past Family History Sister(s) Family Medical History: Cancer Additional Family Medical History / Comment(s): breast Mother Additional Family Medical History / Comment(s): brain tumor Father Family Medical History: Cancer Additional Family Medical History / Comment(s): lung General Exam - General Exam Comments Initial Comments: This is a well-developed well-nourished awake alert oriented 3 female Limitations: no limitations General appearance: alert, in no apparent distress Head exam: Present: atraumatic, normocephalic, normal inspection Eye exam: Present: normal appearance, PERRL, EOMI. Absent: scleral icterus, conjunctival injection, periorbital swelling ENT exam: Present: mucous membranes dry Neck exam: Present: normal inspection, full ROM, other (No stridor JVD or bruits ). Absent: tenderness, meningismus, lymphadenopathy Respiratory exam: Present: wheezes, decreased breath sounds, other (Kyphosis is noted). Absent: respiratory distress, rales, rhonchi, stridor, chest wall tenderness Cardiovascular Exam: Present: regular rate, normal rhythm, normal heart sounds. Absent: systolic murmur, diastolic murmur, rubs, gallop, clicks GI/Abdominal exam: Present: soft, normal bowel sounds. Absent: distended, tenderness, guarding, rebound, rigid Extremities exam: Present: normal inspection, full ROM, normal capillary refill. Absent: tenderness, pedal edema, joint swelling, calf tenderness Back exam: Present: normal inspection Neurological exam: Present: alert, oriented X3, CN II-XII intact Psychiatric exam: Present: normal affect, normal mood Skin exam: Present: warm, dry, intact, normal color. Absent: rash Course Vital Signs 04/13/18 04/13/18 04/13/18 19:02 19:33 19:37 Temperature 98.3 F Pulse Rate 62 68 69 Respiratory 18 Rate Blood Pressure 146/72 O2 Sat by Pulse 98 Oximetry 04/13/18 04/13/18 04/13/18 20:00 20:05 21:00 Temperature Pulse Rate 66 63 Respiratory 22 22 15 Rate Blood Pressure 136/67 127/63 O2 Sat by Pulse Oximetry 04/13/18 04/13/18 22:00 23:00 Temperature Pulse Rate 63 57 L Respiratory 16 16 Rate Blood Pressure 137/65 145/99 O2 Sat by Pulse Oximetry Medical Decision Making - Medical Decision Making Is get minimal improvement of the above (far she still demonstrates coarse breath sounds with diminished breath sounds. She has have elevated d-dimer and also does have renal insufficiency. Patient will be admitted I did discuss case with Dr. Lim patient will be placed on heparin VQ scan will be ordered of grass be continued. - Lab Data Result diagrams: 04/13/18 19:30 04/13/18 19:30 Lab Results 04/13/18 04/13/18 04/13/18 Range/Units 19:30 19:30 19:30 WBC 10.0 (3.8-10.6) k/uL RBC 4.18 (3.80-5.40) m/uL Hgb 12.8 (11.4-16.0) gm/dL Hct 37.2 (34.0-46.0) % MCV 88.9 (80.0-100.0) fL MCH 30.6 (25.0-35.0) pg MCHC 34.4 (31.0-37.0) g/dL RDW 13.5 (11.5-15.5) % Plt Count 216 (150-450) k/uL Neutrophils % 74 % Lymphocytes % 15 % Monocytes % 6 % Eosinophils % 1 % Basophils % 1 % Neutrophils # 7.4 (1.3-7.7) k/uL Lymphocytes # 1.5 (1.0-4.8) k/uL Monocytes # 0.6 (0-1.0) k/uL Eosinophils # 0.1 (0-0.7) k/uL Basophils # 0.1 (0-0.2) k/uL PT (9.0-12.0) sec INR (<1.2) APTT (22.0-30.0) sec D-Dimer (<0.60) mg/L FEU Sodium 137 (137-145) mmol/L Potassium 3.4 L (3.5-5.1) mmol/L Chloride 105 (98-107) mmol/L Carbon Dioxide 20 L (22-30) mmol/L Anion Gap 12 mmol/L BUN 35 H (7-17) mg/dL Creatinine 1.55 H (0.52-1.04) mg/dL Est GFR (CKD-EPI)AfAm 35 (>60 ml/min/1.73 sqM) Est GFR (CKD-EPI)NonAf 31 (>60 ml/min/1.73 sqM) Glucose 128 H (74-99) mg/dL Calcium 9.4 (8.4-10.2) mg/dL Magnesium 1.9 (1.6-2.3) mg/dL Total Bilirubin 0.6 (0.2-1.3) mg/dL AST 30 (14-36) U/L ALT 32 (9-52) U/L Alkaline Phosphatase 84 (38-126) U/L Total Creatine Kinase 102 (30-135) U/L CK-MB (CK-2) 0.4 (0.0-2.4) ng/mL CK-MB (CK-2) Rel Index 0.4 Troponin I 0.017 (0.000-0.034) ng/mL NT-Pro-B Natriuret Pep pg/mL Total Protein 7.3 (6.3-8.2) g/dL Albumin 4.0 (3.5-5.0) g/dL 04/13/18 04/13/18 Range/Units 19:30 19:30 WBC (3.8-10.6) k/uL RBC (3.80-5.40) m/uL Hgb (11.4-16.0) gm/dL Hct (34.0-46.0) % MCV (80.0-100.0) fL MCH (25.0-35.0) pg MCHC (31.0-37.0) g/dL RDW (11.5-15.5) % Plt Count (150-450) k/uL Neutrophils % % Lymphocytes % % Monocytes % % Eosinophils % % Basophils % % Neutrophils # (1.3-7.7) k/uL Lymphocytes # (1.0-4.8) k/uL Monocytes # (0-1.0) k/uL Eosinophils # (0-0.7) k/uL Basophils # (0-0.2) k/uL PT 10.2 (9.0-12.0) sec INR 0.9 (<1.2) APTT 23.0 (22.0-30.0) sec D-Dimer 1.16 H (<0.60) mg/L FEU Sodium (137-145) mmol/L Potassium (3.5-5.1) mmol/L Chloride (98-107) mmol/L Carbon Dioxide (22-30) mmol/L Anion Gap mmol/L BUN (7-17) mg/dL Creatinine (0.52-1.04) mg/dL Est GFR (CKD-EPI)AfAm (>60 ml/min/1.73 sqM) Est GFR (CKD-EPI)NonAf (>60 ml/min/1.73 sqM) Glucose (74-99) mg/dL Calcium (8.4-10.2) mg/dL Magnesium (1.6-2.3) mg/dL Total Bilirubin (0.2-1.3) mg/dL AST (14-36) U/L ALT (9-52) U/L Alkaline Phosphatase (38-126) U/L Total Creatine Kinase (30-135) U/L CK-MB (CK-2) (0.0-2.4) ng/mL CK-MB (CK-2) Rel Index Troponin I (0.000-0.034) ng/mL NT-Pro-B Natriuret Pep 218 pg/mL Total Protein (6.3-8.2) g/dL Albumin (3.5-5.0) g/dL - EKG Data -: EKG Interpreted by Dc EKG shows normal: sinus rhythm (EKG shows sinus bradycardia rate of 58 AK interval 170 QRS duration 86 QT since QTC 454/445 with minimal voltage criteria for LVH nonspecific ST-T wave configuration.) - Radiology Data Radiology results: report reviewed (I did review the imaging and report no definite acute findings evidence of hiatal hernia noted), image reviewed Disposition Clinical Impression: Reactive airway disease, Acute bronchospasm, Renal insufficiency syndrome, Elevated d-dimer Disposition: ADMITTED IP TO THIS [facility] Condition: Stable Referrals: Leonel Bay MD [Primary Care Provider] - 1-2 days
[2018-04-13 19:48] LABS: Basophils # (A) 0.1 k/uL (0-0.2); Basophils % (A) 1 %; Eosinophils # (A) 0.1 k/uL (0-0.7); Eosinophils % (A) 1 %; HCT 37.2 % (34.0-46.0); HGB 12.8 gm/dL (11.4-16.0); Lymphocytes # (A) 1.5 k/uL (1.0-4.8); Lymphocytes % (A) 15 %; MCH 30.6 pg (25.0-35.0); MCHC 34.4 g/dL (31.0-37.0); MCV 88.9 fL (80.0-100.0); Mean Platelet Volume 7.6; Monocytes # (A) 0.6 k/uL (0-1.0); Monocytes % (A) 6 %; Neutrophils # (A) 7.4 k/uL (1.3-7.7); Neutrophils % (A) 74 %; Platelet Count 216 k/uL (150-450); RBC 4.18 m/uL (3.80-5.40); RDW 13.5 % (11.5-15.5)
[2018-04-13 20:03] LABS: INR 0.9 (<1.2); Prothrombin Time 10.2 sec (9.0-12.0)
[2018-04-13 20:09] LABS: Calcium 9.4 mg/dL (8.4-10.2); Magnesium 1.9 mg/dL (1.6-2.3); Potassium 3.4 mmol/L (3.5-5.1); Total Bilirubin 0.6 mg/dL (0.2-1.3); Total Protein 7.3 g/dL (6.3-8.2)
--- NOTE | 2018-04-13 20:09 | XR ---
EXAMINATION TYPE: XR chest 2V DATE OF EXAM: 04/13/2018 COMPARISON: 05/27/2016 HISTORY: Difficulty breathing TECHNIQUE: Frontal and lateral views of the chest are obtained. FINDINGS: There is increased density behind the heart on the lateral view that could relate to hiata l hernia. Thoracic aorta shows mild atheromatous change. There is no heart failure. There is no pleur al effusion. The bony thorax appears intact. There is left axillary pacemaker noted. IMPRESSION: There is probably a hiatal hernia. No heart failure seen. Heart and lungs are unchanged compared to last exam.
[2018-04-13 20:19] LABS: D-Dimer 1.16 mg/L FEU (<0.60)
[2018-04-13 20:21] LABS: Creatine Kinase MB 0.4 ng/mL (0.0-2.4); Troponin I 0.017 ng/mL (0.000-0.034)
[2018-04-13] MEDS ORDERED: HEPARIN SODIUM,PORCINE 5,000 UNIT/ML 1 ML VIAL IV ONE (23:06)
[2018-04-13] MEDS ORDERED: HEPARIN SODIUM,PORCINE 5,000 UNIT/ML 1 ML VIAL IV PRN (23:06)
[2018-04-13] MEDS ORDERED: HEPARIN SOD,PORK IN 0.45% NACL 25,000 UNIT in 0.45% NACL 1 250ML.BAG IV SCH (23:15)
[2018-04-13] MEDS ORDERED: IPRATROPIUM-ALBUTEROL 3 ML NEB INHALATION PRN (23:25)
[2018-04-14] MEDS ORDERED: IPRATROPIUM-ALBUTEROL 3 ML NEB INHALATION SCH
[2018-04-14 00:21] LABS: Glucose,Whole Blood 264 mg/dL (75-99)
[2018-04-14] MEDS: SODIUM CHLORIDE 0.9% 1,000 ML IV SCH ×2 (00:26→14:32)
[2018-04-14] MEDS ORDERED: POTASSIUM CHLORIDE ER 20 MEQ TAB.ER PO STA (00:51)
--- NOTE | 2018-04-14 01:10 | P.HPIM ---
History of Present Illness H&P Date: 04/13/18 Chief Complaint: Coughing and wheezing 82-year-old female with history of diabetes mellitus, hypertension, CAD, hypothyroid H&P presented the hospital with 1 week history of progressive coughing and difficulty breathing. She reports that she was on a Z-Angel that her PCP prescribed last week with no much improvement, today she seemed to have worsening of her cough along with wheezing and trouble breathing. She also complained of left shoulder blade pain is localized in gets worse with movement. Denies any fevers or chills denies any chest pain otherwise. Shortness of breath is worse with attacks of coughing and with activity. She reports that her coughing is productive of variable color sputum. Denies any recent traveling denies any recent hospitalization. Denies any pain in her legs. Patient denies any nausea vomiting a changes in her urination denies any dysuria hematuria or foul-smelling urine. Denies any abdominal pain denies any focal neurologic deficits. In the ED patient was found to be wheezing she was started on COPD pathway. Later on d-dimer came back positive patient couldn't get a CT angios the chest due to elevated creatinine and she was placed on heparin drip. Review of Systems Pertinent positives as noted in HPI. All other systems were reviewed and are negative Past Medical History Past Medical History: Asthma, Coronary Artery Disease (CAD), Diabetes Mellitus, GERD/Reflux, Hyperlipidemia, Hypertension, Myocardial Infarction (PR), Thyroid Disorder Additional Past Medical History / Comment(s): varicose veins, incontinent of urine-uses depends, uses walker Last Myocardial Infarction Date:: 2014 History of Any Multi-Drug Resistant Organisms: None Reported Past Surgical History: Appendectomy, Back Surgery, Cholecystectomy, Heart Catheterization With Stent, Hysterectomy, Pacemaker Additional Past Surgical History / Comment(s): robotic abdominal surgery for mass, 2 cardiac stents, marcellus cataracts Past Anesthesia/Blood Transfusion Reactions: Previous Problems w/ Anesthesia Additional Past Anesthesia/Blood Transfusion Reaction / Comment(s): "blood pressure drops" Date of Last Stent Placement:: Type of Cardiac Device: Permanent Pacemaker Device Placement Date:: 2014 Past Psychological History: Anxiety, Depression Smoking Status: Former smoker Past Alcohol Use History: None Reported Past Drug Use History: None Reported - Past Family History Sister(s) Family Medical History: Cancer Additional Family Medical History / Comment(s): breast Mother Additional Family Medical History / Comment(s): brain tumor Father Family Medical History: Cancer Additional Family Medical History / Comment(s): lung Medications and Allergies Home Medications Medication Instructions Recorded Confirmed Type Calcium Carbonate/Vitamin D3 2 tab PO DAILY 06/22/14 04/13/18 History [Calcium 600-Vit D3 400 Tablet] Cholecalciferol [Vitamin D3] 1,000 unit PO DAILY 06/22/14 04/13/18 History Multivitamins, Thera [Multivitamin 1 tab PO DAILY 06/22/14 04/13/18 History (formulary)] Losartan Potassium [Cozaar] 100 mg PO DAILY 06/27/14 04/13/18 History Omeprazole [PriLOSEC] 20 mg PO DAILY 10/11/14 04/13/18 History Chlorthalidone 25 mg PO DAILY 05/21/16 04/13/18 History Levothyroxine Sodium [Synthroid] 88 mcg PO DAILY 05/21/16 04/13/18 History Metoprolol Tartrate [Lopressor] 25 mg PO BID 05/21/16 04/13/18 History Atorvastatin [Lipitor] 80 mg PO HS 05/23/16 04/13/18 History Albuterol Inhaler [Ventolin Hfa 2 puff INHALATION RT-Q6H PRN 04/13/18 04/13/18 History Inhaler] Aspirin EC [Ecotrin Low Dose] 81 mg PO DAILY 04/13/18 04/13/18 History Azithromycin [Zithromax Z-pack] See Taper PO DAILY 04/13/18 04/13/18 History Cod Liver Oil 1 cap PO DAILY 04/13/18 04/13/18 History Donepezil [Aricept] 10 mg PO HS 04/13/18 04/13/18 History Insulin Glargine,Hum.rec.anlog 18 unit SQ HS 04/13/18 04/13/18 History [Lantus Solostar] Memantine HCl [Namenda] 5 mg PO BID 04/13/18 04/13/18 History Vitamin E (Dl,Tocopheryl Acet) 400 unit PO DAILY 04/13/18 04/13/18 History [Vitamin E] Allergies Allergy/AdvReac Type Severity Reaction Status Date / Time celecoxib [From Celebrex] Allergy LIGHT Verified 04/13/18 19:48 SENSITIVITY/MIGRAINES NSAIDS (Non-Steroidal Allergy LIGHT Verified 04/13/18 19:48 Anti-Inflamma SENSITIVITY/MIGRAINES arthritis medications Allergy tongue Uncoded 04/13/18 19:05 swelling MOLD AdvReac Swelling Uncoded 04/13/18 19:05 Physical Exam Vitals: Vital Signs Temp Pulse Resp BP Pulse Ox 04/13/18 23:18 59 L 04/13/18 23:11 53 L 04/13/18 23:00 57 L 16 145/99 04/13/18 22:00 63 16 137/65 04/13/18 21:00 63 15 127/63 04/13/18 20:05 22 04/13/18 20:00 66 22 136/67 04/13/18 19:37 69 04/13/18 19:33 68 04/13/18 19:02 98.3 F 62 18 146/72 98 Intake and Output 04/13/18 04/13/18 04/14/18 14:59 22:59 06:59 Other: Weight 63.503 kg Constitutional: No acute distress, conversant, pleasant Eyes: Anicteric sclerae, moist conjunctiva, no lid-lag Pupils equal round reactive to light ENMT: NC/AT Oropharynx clear, no erythema, exudates Neck: Supple, FROM, no masses, or JVD No carotid bruits No thyromegaly Lungs: Clear to auscultation Clear to percussion Normal respiratory effort, no accessory muscle use Cardiovascular: Heart regular in rate and rhythm, No murmurs, gallops, or rubs No peripheral edema Abdominal: Soft Nontender, slight discomfort to palpation of the suprapubic region, no guarding, rebound or rigidity Abdomen moving with respiration Normoactive bowel sounds No hepatomegaly, No splenomegaly No palpable mass No abdominal wall hernia noted Skin: Normal temperature, tone, texture, turgor No induration No subcutaneous nodules No rash, lesions No ulcers Extremities: No digital cyanosis No clubbing Pedal pulses intact and symmetrical Radial pulses intact and symmetrical No calf tenderness Psychiatric: Alert and oriented to person, place not to time Appropriate affect fair judgment Neuro Muscles Strength 4/5 in all 4 extremities Sensation to light touch grossly present throughout Cranial nerves II-XII grossly intact, hard of hearing No focal sensory deficits Lymphatics: no palpable cervical or supraclavicular , or inguinal lymph nodes Results CBC & Chem 7: 04/13/18 19:30 04/13/18 19:30 Labs: Abnormal Lab Results - Last 24 Hours (Table) 04/13/18 04/13/18 Range/Units 19:30 19:30 D-Dimer 1.16 H (<0.60) mg/L FEU Potassium 3.4 L (3.5-5.1) mmol/L Carbon Dioxide 20 L (22-30) mmol/L BUN 35 H (7-17) mg/dL Creatinine 1.55 H (0.52-1.04) mg/dL Glucose 128 H (74-99) mg/dL Assessment and Plan Assessment: 82-year-old female with history of diabetes and CAD admitted as an inpatient with anticipated length of stay more than 48 hours for acute bronchitis and acute kidney injury. Patient was found to have elevated d-dimer started on heparin drip until PE is ruled out. Otherwise she had unremarkable urinalysis, slightly low potassium. Plan: Acute bronchitis failed outpatient therapy Patient placed on inhalers, steroids due to her history of smoking, for suspected clinical COPD Doxycycline for anti-inflammatory effect Chest x-ray showed no acute process Supplemental oxygen as needed Left shoulder blade pain, with elevated d-dimer rule out PE Patient placed on heparin drip VQ scan in the morning Current perform CT image of the chest due to elevated creatinine MANISH most likely prerenal ATN hold CHRISTINE inhibitor Monitor urine output Avoid nephrotoxic meds Diabetes mellitus Insulin sliding scale Hypokalemia Replace by mouth all levels Check magnesium level Hypertension Continue home meds CHRISTINE inhibitor on hold DVT prophylaxis currently on heparin drip for suspected PE Surrogate decision-maker: Patient daughter CODE STATUS: Full code Discussed with: Patient, ER, RN Anticipated discharge: 48-[address]: Home A total of 60 minutes was spent on the care of this complex patient more than 50 % of the time was spent in counseling and care coordination.
[2018-04-14 01:26] VITALS: BMI 29.2
[2018-04-14] MEDS: methylPREDNISolone SOD SUCCI 125 MG/2 ML VIAL IV SCH ×3 (01:34→14:36)
[2018-04-14] MEDS: INSULIN ASPART 100 UNIT/ML 1 ML 10 ML VIAL SQ SCH ×3 (01:44→14:36)
[2018-04-14 01:47] LABS: Glucose,Whole Blood 309 mg/dL (75-99)
[2018-04-14] MEDS ORDERED: INSULIN ASPART 100 UNIT/ML 1 ML 10 ML VIAL SQ ONE (03:18)
[2018-04-14 03:19] LABS: Glucose,Whole Blood 337 mg/dL (75-99)
[2018-04-14 04:11] VITALS: TEMP 97.8
[2018-04-14 05:11] LABS: Basophils % (A) 0 %; Eosinophils % (A) 0 %; HCT 35.4 % (34.0-46.0); HGB 11.6 gm/dL (11.4-16.0); Lymphocytes % (A) 14 %; MCH 29.7 pg (25.0-35.0); MCHC 32.7 g/dL (31.0-37.0); MCV 90.9 fL (80.0-100.0); Mean Platelet Volume 7.7; Monocytes # (A) 0.2 k/uL (0-1.0); Monocytes % (A) 2 %; Neutrophils # (A) 6.4 k/uL (1.3-7.7); Neutrophils % (A) 83 %; Platelet Count 214 k/uL (150-450); RDW 13.7 % (11.5-15.5); WBC 7.7 k/uL (3.8-10.6)
[2018-04-14 05:34] LABS: Albumin 3.7 g/dL (3.5-5.0); Calcium 9.2 mg/dL (8.4-10.2); Magnesium 1.9 mg/dL (1.6-2.3); Potassium 2.8 mmol/L (3.5-5.1); Total Bilirubin 0.4 mg/dL (0.2-1.3); Total Protein 7.2 g/dL (6.3-8.2)
[2018-04-14 05:47] LABS: Glucose,Whole Blood 267 mg/dL (75-99)
[2018-04-14] MEDS ORDERED: LEVOTHYROXINE 88 MCG TAB PO SCH (06:30)
[2018-04-14] MEDS: POTASSIUM CHLORIDE ER 20 MEQ TAB.ER PO SCH ×3 (06:35→08:32)
[2018-04-14 06:59] LABS: Glucose,Whole Blood 235 mg/dL (75-99)
[2018-04-14] MEDS ORDERED: PANTOPRAZOLE 40 MG TABLET PO SCH (07:30)
[2018-04-14 07:42] LABS: Glucose,Whole Blood 204 mg/dL (75-99)
[2018-04-14] MEDS: IPRATROPIUM-ALBUTEROL 3 ML NEB INHALATION SCH ×3 (07:51→16:23)
[2018-04-14] MEDS ORDERED: LOSARTAN 50 MG TAB PO SCH (09:00)
[2018-04-14] MEDS ORDERED: MEMANTINE 5 MG TAB PO SCH (09:00)
[2018-04-14] MEDS ORDERED: CHLORTHALIDONE 25 MG TAB PO SCH (09:00)
[2018-04-14] MEDS ORDERED: METOPROLOL TARTRATE 25 MG TAB PO SCH (09:00)
[2018-04-14] MEDS ORDERED: MULTIVITAMINS, THERA 1 EACH TAB PO SCH (12:00)
--- NOTE | 2018-04-14 12:11 | NM ---
EXAMINATION TYPE: NM pul vent and perfuse DATE OF EXAM: 04/14/2018 COMPARISON: Chest x-ray from yesterday. HISTORY: Difficulty in breathing. Elevated d-dimer. TECHNIQUE: Utilizing inhalation of 40.8 mCi Tc 99m DTPA aerosol and intravenous injection of 4.91 mC i of Tc 99m MAA, ventilation and perfusion images are acquired post injection in multiple projections . FINDINGS: Normal radiotracer distribution is noted in the lungs. There is no evidence of mismatched defects. IMPRESSION: Low scintigraphic probability for pulmonary embolism.
[2018-04-14 12:25] LABS: Glucose,Whole Blood 213 mg/dL (75-99)
[2018-04-14 13:15] VITALS: BP 169/63; PULSE 85; RESP 12
[2018-04-14 16:03] LABS: Calcium 9.7 mg/dL (8.4-10.2); Potassium 4.4 mmol/L (3.5-5.1)
--- NOTE | 2018-04-14 16:30 | P.DS ---
Providers Date of admission: 04/13/18 23:04 Expected date of discharge: 04/14/18 Attending physician: Kathleen Torres MD Primary care physician: Leonel Bay MD Hospital Course: The patient is a 82 yo F with a PMH of HTN, DM, CAD s/p pacemaker placement, HLD , and hypothyroidism presented to the ED w/ c/o non-productive coughing and SOB with little improvement from Z-pack prescribed by her PCP. She also endorsed pleuritic L shoulder-blade pain. The patient was noted to have an elevated D- dimer with MANISH. She was admitted to undergo V/Q scan with acute bronchitis and was placed on IV steroids and duonebs. The patient's VQ scan showed low probability of PE. She was seen at the bedside on the day of discharge and noted that her breathing has improved significantly and she denied any further episodes of SOB, chest pain, nausea, vomiting, diaphoresis, fever, or chills and noted only minimal cough. She also noted that her L shoulder-blade pain had resolved. The patient was noted to be hypokalemic which was supplemented and resolved. She also had MANISH and Losartan was held with improvement in her kidney function. The patient requested to be discharged as she noted that she was feeling back to her baseline. She is presently stable and ready for discharge to home. Physical Examination General: Awake, alert, in no acute distress HEENT: NC/AT, anicteric sclerae, moist conjunctiva, no lid-lag, PERRLA, oropharynx clear, no erythema, exudates Cardiovascular: S1/S2 wnl, no murmurs, rubs, or gallops Lungs: Clear to auscultation, normal respiratory effort, no accessory muscle use Abdominal: Soft, nontender, non-distended, no guarding, rebound, or rigidity, normoactive bowel sounds Skin: Warm, dry Extremities: No edema or contractures, no L scapular tenderness Psychiatric: Alert and oriented to person, place and time, appropriate affect, Intact judgment Neuro: CN II-XI grossly intact, sensation to light touch grossly present throughout, strength 5/5 throughout Discharge diagnosis: Acute bronchitis; MANISH; Hypokalemia; HTN; DM; HLD A total of 60 minutes of time were spent preparing this complex discharge summary. Pertinent Studies: As per above Patient Condition at Discharge: Stable Plan - Discharge Summary New Discharge Prescriptions: Continue Multivitamins, Thera [Multivitamin (formulary)] 1 tab PO DAILY Calcium Carbonate/Vitamin D3 [Calcium 600-Vit D3 400 Tablet] 2 tab PO DAILY Cholecalciferol [Vitamin D3] 1,000 unit PO DAILY Omeprazole [PriLOSEC] 20 mg PO DAILY Chlorthalidone 25 mg PO DAILY Levothyroxine Sodium [Synthroid] 88 mcg PO DAILY Metoprolol Tartrate [Lopressor] 25 mg PO BID Atorvastatin [Lipitor] 80 mg PO HS Vitamin E (Dl,Tocopheryl Acet) [Vitamin E] 400 unit PO DAILY Memantine HCl [Namenda] 5 mg PO BID Donepezil [Aricept] 10 mg PO HS Insulin Glargine,Hum.rec.anlog [Lantus Solostar] 18 unit SQ HS Aspirin EC [Ecotrin Low Dose] 81 mg PO DAILY Albuterol Inhaler [Ventolin Hfa Inhaler] 2 puff INHALATION RT-Q6H PRN PRN Reason: Shortness Of Breath Discontinued Losartan Potassium [Cozaar] 100 mg PO DAILY Cod Liver Oil 1 cap PO DAILY Azithromycin [Zithromax Z-pack] See Taper PO DAILY Discharge Medication List Calcium Carbonate/Vitamin D3 [Calcium 600-Vit D3 400 Tablet] 2 tab PO DAILY [History] Cholecalciferol [Vitamin D3] 1,000 unit PO DAILY 06/22/14 [History] Multivitamins, Thera [Multivitamin (formulary)] 1 tab PO DAILY 06/22/14 [History ] Omeprazole [PriLOSEC] 20 mg PO DAILY 10/11/14 [History] Chlorthalidone 25 mg PO DAILY 05/21/16 [History] Levothyroxine Sodium [Synthroid] 88 mcg PO DAILY 05/21/16 [History] Metoprolol Tartrate [Lopressor] 25 mg PO BID 05/21/16 [History] Atorvastatin [Lipitor] 80 mg PO HS 05/23/16 [History] Albuterol Inhaler [Ventolin Hfa Inhaler] 2 puff INHALATION RT-Q6H PRN 04/13/18 [ History] Aspirin EC [Ecotrin Low Dose] 81 mg PO DAILY 04/13/18 [History] Donepezil [Aricept] 10 mg PO HS 04/13/18 [History] Insulin Glargine,Hum.rec.anlog [Lantus Solostar] 18 unit SQ HS 04/13/18 [History ] Memantine HCl [Namenda] 5 mg PO BID 04/13/18 [History] Vitamin E (Dl,Tocopheryl Acet) [Vitamin E] 400 unit PO DAILY 04/13/18 [History] Follow up Appointment(s)/Referral(s): [facility]cerned,Home Care [NON-STAFF] - 1-2 Days Leonel Bay MD [Primary Care Provider] - 1-2 days
[2018-04-14] MEDS ORDERED: DONEPEZIL 10 MG TAB PO SCH (21:00)
[2018-04-14] MEDS ORDERED: INSULIN DETEMIR 100 UNIT/ML 10 ML VIAL SQ SCH (21:00)
[2018-04-14] MEDS ORDERED: ATORVASTATIN 80 MG TAB PO SCH (21:00)
== END 2018-04-14 17:03 | disposition home or self-care (01) ==
LOC: EC 18:56 → INTOOBSV 23:04 → 2SICU 23:04
PROVIDERS: ADMIT Internal Medicine; ATTEND Internal Medicine
DX: J20.9 Acute bronchitis, unspecified (principal); N17.9 Acute kidney failure, unspecified; E87.6 Hypokalemia; I10 Essential (primary) hypertension; R77.8 Other specified abnormalities of plasma proteins; E78.5 Hyperlipidemia, unspecified; I25.10 Atherosclerotic heart disease of native coronary artery without angina pectoris; K21.9 Gastro-esophageal reflux disease without esophagitis; E11.9 Type 2 diabetes mellitus without complications; E03.9 Hypothyroidism, unspecified; I25.2 Old myocardial infarction; M25.512 Pain in left shoulder; I83.90 Asymptomatic varicose veins of unspecified lower extremity; J45.909 Unspecified asthma, uncomplicated; R32 Unspecified urinary incontinence; Z95.0 Presence of cardiac pacemaker; Z79.899 Other long term (current) drug therapy; Z95.5 Presence of coronary angioplasty implant and graft; Z90.710 Acquired absence of both cervix and uterus; Z87.891 Personal history of nicotine dependence; Z79.890 Hormone replacement therapy; Z79.82 Long term (current) use of aspirin; Z79.4 Long term (current) use of insulin; Z88.8 Allergy status to other drugs, medicaments and biological substances; Z91.048 Other nonmedicinal substance allergy status; Z80.1 Family history of malignant neoplasm of trachea, bronchus and lung; Z80.3 Family history of malignant neoplasm of breast; Z90.49 Acquired absence of other specified parts of digestive tract
CPT/HCPCS: 96376; 96366; 96375 ×2; 99285; 36415; 94640 ×3; 93005; 85379; 83880; 80053 ×2; 80048; 82550; 82553; 83735 ×2; 84484; 85025 ×2; 85610; 85730 ×2; 87040; 71046; 78582; G0378 ×3; A9540; A9567; J1644 ×2; J2930 ×2